=== PATIENT | male | born 1960 | race Caucasian/White ===

== ENCOUNTER 2017-05-12 08:17 | Inpatient (IN) ==
[2017-05-12] MEDS ORDERED: DIPHTHERIA/TETANUS ADULT VACCINE 0.5 ML VIAL IM ONE (08:21)
[2017-05-12 08:55] LABS: Basophils # 0.1 10*3/uL (0.0-0.2); Basophils % 0.6 % (0.0-0.8); Eosinophils # 0.1 10*3/uL (0.0-0.87); Eosinophils % 0.8 % (0.00-10.9); Hematocrit 50.5 VOL% (42.0-52.0); Hemoglobin 17.1 GM/DL (14.0-18.0); Immature Granulocytes % 1.6 %; Immature Granulocytes Absolute 0.25 #; Lymphocytes # 1.3 10*3/uL (1.4-4.0); Mean Corpuscular HGB Conc 33.9 GM/DL (32-36); Mean Corpuscular Hemoglobin 29 PG (27-34); Mean Corpuscular Volume 84.7 FL (87-102); Mean Platelet Volume 9.1 FL (9.6-12.0); Monocytes % 6.6 % (1.7-12.7); Neutrophils % 82.4 % (38.7-73.9); Platelet Count 289 T/CUMM (130-400); Red Blood Count 5.96 MC/CUMM (3.8-5.5); Red Cell Distribution Width 13.5 % (9.3-17.3); White Blood Count 15.8 T/CUMM (4-12)
[2017-05-12] MEDS ORDERED: DIPH/TET/ACEL PERT BOOSTER VACCINE 0.5 ML VIAL IM ONE (08:57)
[2017-05-12] MEDS ORDERED: HYDROmorphone 2 MG/1 ML VIAL IV STA ×2 (09:09→10:57)
[2017-05-12] MEDS ORDERED: ONDANSETRON 4 MG/2 ML VIAL IV STA (09:09)
[2017-05-12] MEDS ORDERED: GENTAMICIN INJ 120 MG in SODIUM CHLORIDE 0.9% 100 ML IV STA (09:10)
[2017-05-12] MEDS ORDERED: CLINDAMYCIN INJ 600 MG in PREMIX 1 EACH IV STA (09:10)
[2017-05-12 09:16] LABS: PT Patient Result 10.2 SECS
[2017-05-12] MEDS ORDERED: ONDANSETRON 4 MG/2 ML VIAL ONE (09:25)
[2017-05-12] MEDS ORDERED: LIDOCAINE 1%/EPI INJ 20 ML VIAL ONE (09:26)
[2017-05-12] MEDS ORDERED: CLINDAMYCIN INJ 50 ML IV ONE (09:26)
[2017-05-12] MEDS ORDERED: HYDROmorphone 2 MG/1 ML VIAL ONE ×2 (09:26→10:54)
[2017-05-12 09:28] LABS: Lactic Acid 1.7 MMOL/L (0.4-2.0)
[2017-05-12 09:29] LABS: Alanine Aminotransferase 49 U/L (16-61); Albumin 4.1 G/DL (3.4-5.0); Alkaline Phosphatase 81 U/L (45-117); Amylase 95 U/L (25-115); Aspartate Amino Transferase 61 U/L (0-37); Bilirubin,Total < 0.39 MG/DL (0.2-1.0); Blood Urea Nitrogen 20 MG/DL (7-18); Glucose 105 MG/DL (74-106); Osmolality,Calculated 279.5 MOS/KG (273-304); Potassium 5.1 MMOL/L (3.5-5.1); Sodium 139 MMOL/L (136-145); Total Protein 7.7 G/DL (6.4-8.3)
[2017-05-12] MEDS ORDERED: MAGNESIUM HYDROXIDE SUSP 30 ML UDCUP PO PRN ×2 (13:17→18:03)
[2017-05-12] MEDS ORDERED: oxyCODONE/ACETAMINOPHEN 5-325 MG TABLET PO PRN (13:17)
[2017-05-12 14:53] LABS: Albumin 4.1 G/DL (3.4-5.0); Bilirubin,Total 0.4 MG/DL (0.2-1.0); Calcium 8.7 MG/DL (8.5-10.1); Osmolality,Calculated 277.8 MOS/KG (273-304); Potassium 5.3 MMOL/L (3.5-5.1); Total Protein 7.5 G/DL (6.4-8.3)
[2017-05-12 15:14] LABS: Basophils # 0.1 10*3/uL (0.0-0.2); Basophils % 0.5 % (0.0-0.8); Eosinophils % 0.1 % (0.00-10.9); Hematocrit 49.5 VOL% (42.0-52.0); Hemoglobin 16.6 GM/DL (14.0-18.0); Immature Granulocytes % 0.7 %; Immature Granulocytes Absolute 0.13 #; Lymphocytes # 1.3 10*3/uL (1.4-4.0); Lymphocytes % 6.5 % (21.2-54.2); Mean Corpuscular HGB Conc 33.5 GM/DL (32-36); Mean Corpuscular Hemoglobin 29 PG (27-34); Mean Corpuscular Volume 85.1 FL (87-102); Mean Platelet Volume 9.3 FL (9.6-12.0); Monocytes # 1.7 10*3/uL (0.11-0.8); Monocytes % 8.8 % (1.7-12.7); Neutrophils % 83.4 % (38.7-73.9); Platelet Count 289 T/CUMM (130-400); Red Blood Count 5.82 MC/CUMM (3.8-5.5); Red Cell Distribution Width 13.6 % (9.3-17.3); White Blood Count 19.2 T/CUMM (4-12)
[2017-05-12] MEDS ORDERED: PROMETHAZINE 25 MG/1 ML VIAL IM PRN (18:03)
[2017-05-12] MEDS ORDERED: ONDANSETRON 4 MG/2 ML VIAL IV PRN (18:03)
[2017-05-12] MEDS ORDERED: HYDROmorphone 2 MG/1 ML VIAL IV PRN (18:03)
[2017-05-12] MEDS ORDERED: BISACODYL 5 MG TABLET PO PRN (18:03)
[2017-05-12] MEDS ORDERED: BISACODYL 10 MG SUPP RECTAL PRN (18:03)
[2017-05-12] MEDS ORDERED: CYCLOBENZAPRINE 10 MG TABLET PO PRN (18:07)
[2017-05-12] MEDS: SODIUM CHLORIDE 0.9% 1,000 ML IV SCH (18:46)
[2017-05-12] MEDS: CLINDAMYCIN INJ 900 MG in PREMIX 1 EACH IV SCH (18:47)
[2017-05-12] MEDS: TEMAZEPAM 15 MG CAPSULE PO PRN (21:21)
[2017-05-13] MEDS: CLINDAMYCIN INJ 900 MG in PREMIX 1 EACH IV SCH ×3 (01:13→16:13)
[2017-05-13] MEDS: SODIUM CHLORIDE 0.9% 1,000 ML IV SCH ×3 (01:19→18:35)
[2017-05-13] MEDS ORDERED: ACETAMINOPHEN 1,000 MG/100 ML VIAL IV ONE (09:12)
[2017-05-13] MEDS ORDERED: ROPIVACAINE 0.5% 30 ML VIAL ONE (10:07)
[2017-05-13] MEDS ORDERED: MIDAZOLAM 2 MG/2 ML VIAL ONE (10:36)
[2017-05-13] MEDS ORDERED: fentaNYL 100 MCG/2 ML VIAL ONE (10:36)
[2017-05-13] MEDS ORDERED: NEOSTIGMINE 10 MG/10 ML VIAL ONE (10:37)
[2017-05-13] MEDS ORDERED: ONDANSETRON 4 MG/2 ML VIAL ONE (10:37)
[2017-05-13] MEDS ORDERED: KETOROLAC 30 MG/1 ML VIAL ONE (10:37)
[2017-05-13] MEDS ORDERED: ONDANSETRON 4 MG/2 ML VIAL IV PRN (10:38)
[2017-05-13] MEDS: HYDROmorphone 2 MG/1 ML VIAL IV PRN ×4 (10:45→11:11)
[2017-05-13] MEDS: TEMAZEPAM 15 MG CAPSULE PO PRN (18:33)
[2017-05-14] MEDS: CLINDAMYCIN INJ 900 MG in PREMIX 1 EACH IV SCH ×2 (02:05→10:19)
[2017-05-14] MEDS: SODIUM CHLORIDE 0.9% 1,000 ML IV SCH ×2 (02:35→05:31)
[2017-05-14 11:09] VITALS: BP 152/85
== END 2017-05-14 11:30 | disposition home or self-care (01) | DRG 513 ==
LOC: EDUNIT# → EDBD → N.ED 08:17 → N.EDINP 11:30 → N.3E 13:16
PROVIDERS: ADMIT Orthopaedic Surgery; ATTEND Orthopaedic Surgery